=== PATIENT | female | born 1940 | race Two or more races ===

== ENCOUNTER 2018-07-10 10:35 | Outpatient (CLI) | payer OTHER | END 2018-07-10 10:54 | disposition home or self-care (01) | LOC: RAD 10:35 | DX: Z12.31 Encounter for screening mammogram for malignant neoplasm of breast (principal); Z87.898 Personal history of other specified conditions; N64.89 Other specified disorders of breast; M54.5 Low back pain ==

== ENCOUNTER 2018-07-14 13:42 | Outpatient (CLI) | payer OTHER | END 2018-07-14 13:51 | disposition home or self-care (01) | LOC: LAB 13:42 | DX: N39.0 Urinary tract infection, site not specified (principal) ==

== ENCOUNTER → 2019-04-11 | Outpatient (CLI) | payer OTHER ==
[~2019-04-11] MED LIST: TRAMADOL HCL50 MG PO
== END | disposition home or self-care (01) ==
LOC: NUCLEAR 13:00
DX: I87.2 Venous insufficiency (chronic) (peripheral) (principal); I73.9 Peripheral vascular disease, unspecified

== ENCOUNTER → 2019-04-13 | Outpatient (CLI) | payer OTHER | END | disposition home or self-care (01) | LOC: NUCLEAR 12:00 | DX: I73.9 Peripheral vascular disease, unspecified (principal) ==

== ENCOUNTER 2019-11-09 11:51 | Outpatient (CLI) | payer OTHER | END 2019-11-09 14:26 | disposition home or self-care (01) | LOC: RAD 11:51 | PROVIDERS: ATTEND Orthopaedic Surgery | DX: M75.122 Complete rotator cuff tear or rupture of left shoulder, not specified as traumatic (principal); M19.012 Primary osteoarthritis, left shoulder; Z76.89 Persons encountering health services in other specified circumstances; M20.5X2 Other deformities of toe(s) (acquired), left foot ==

== ENCOUNTER 2019-11-26 07:15 | Outpatient (CLI) | payer OTHER ==
[2019-11-26] MEDS ORDERED: SYMBICORT 16010.2 GM IH (10:28)
[2019-11-26] MEDS ORDERED: XOPENEX0.63 MG/3 IH (10:29)
[2019-11-26] MEDS ORDERED: UCERIS9 MG PO (10:29)
[2019-11-26] MEDS ORDERED: LIPITOR20 MG (10:29)
[2019-11-26] MEDS ORDERED: NORVASC10 MG PO (10:29)
[2019-11-26] MEDS ORDERED: RAYOS5 MG PO (10:30)
== END 2019-11-26 13:04 | disposition home or self-care (01) ==
LOC: RAD 07:15 → LAB 07:15
PROVIDERS: ATTEND Orthopaedic Surgery
DX: I49.8 Other specified cardiac arrhythmias (principal); I10 Essential (primary) hypertension; Z76.89 Persons encountering health services in other specified circumstances; D64.89 Other specified anemias; D68.8 Other specified coagulation defects; N39.0 Urinary tract infection, site not specified; Z22.322 Carrier or suspected carrier of Methicillin resistant Staphylococcus aureus; E88.89 Other specified metabolic disorders

== ENCOUNTER 2019-11-26 11:02 | Emergency (ER) | payer OTHER ==
[~2019-11-26] VITALS: Ht 157.5 cm; Wt 51.7 kg
[~2019-11-26 11:02] MED LIST changes: +LIPITOR20 MG; +NORVASC10 MG PO; +RAYOS5 MG PO; +SYMBICORT 16010.2 GM IH; +UCERIS9 MG PO; +XOPENEX0.63 MG/3 IH
== END 2019-11-26 11:57 | disposition home or self-care (01) ==
LOC: ER 11:02
DX: S01.81XA Laceration without foreign body of other part of head, initial encounter (principal); W06.XXXA Fall from bed, initial encounter; Y93.89 Activity, other specified; Y92.013 Bedroom of single-family (private) house as the place of occurrence of the external cause; Y99.8 Other external cause status

== ENCOUNTER 2019-12-11 05:55 | Day surgery (SDC) | payer OTHER ==
[~2019-12-11 05:55] MED LIST changes: +ALBUTEROL; +PULMOCORT; +SINGULAIR10 MG PO
== END 2019-12-11 14:15 | disposition home or self-care (01) ==
LOC: CIR.AMB 05:55
PROVIDERS: ATTEND Orthopaedic Surgery
DX: M75.122 Complete rotator cuff tear or rupture of left shoulder, not specified as traumatic (principal); M75.22 Bicipital tendinitis, left shoulder; M19.012 Primary osteoarthritis, left shoulder; Z20.828 Contact with and (suspected) exposure to other viral communicable diseases

== ENCOUNTER 2020-01-10 11:20 | Outpatient (CLI) | payer OTHER | END 2020-01-10 11:23 | disposition home or self-care (01) | LOC: RAD 11:20 | PROVIDERS: ATTEND Orthopaedic Surgery | DX: M25.512 Pain in left shoulder (principal) ==

== ENCOUNTER 2020-02-14 10:50 | Outpatient (CLI) | payer OTHER ==
[2020-02-25] MEDS ORDERED: NABUMETONE750 MG PO (11:08)
== END 2020-02-14 11:30 | disposition home or self-care (01) ==
LOC: WOUND MED 10:50
PROVIDERS: ATTEND Specialist
DX: L98.492 Non-pressure chronic ulcer of skin of other sites with fat layer exposed (principal)
CPT/HCPCS: 11042; G0463; A4554; A4930; A6216

== ENCOUNTER 2020-02-19 11:40 | Outpatient (CLI) | payer OTHER ==
[2020-02-25] MEDS ORDERED: NABUMETONE750 MG PO (11:08)
== END 2020-02-19 12:22 | disposition home or self-care (01) ==
LOC: WOUND MED 11:40
PROVIDERS: ATTEND Specialist
DX: L98.492 Non-pressure chronic ulcer of skin of other sites with fat layer exposed (principal)
CPT/HCPCS: 97602; A4554; A4930; A6216; A6219

== ENCOUNTER 2020-02-21 08:01 | Outpatient (CLI) | payer OTHER ==
[2020-02-25] MEDS ORDERED: NABUMETONE750 MG PO (11:08)
== END 2020-02-21 11:32 | disposition home or self-care (01) ==
LOC: WOUND MED 08:01
PROVIDERS: ATTEND Specialist
DX: L98.492 Non-pressure chronic ulcer of skin of other sites with fat layer exposed (principal)
CPT/HCPCS: G0463; A4554; A4930; A6216

== ENCOUNTER → 2020-08-11 09:59 | Outpatient (CLI) | payer OTHER ==
[~2020-08-11 09:59] MED LIST changes: +NABUMETONE750 MG PO; +PREDNISONE 5MG PO
== END | disposition home or self-care (01) ==
LOC: LAB 09:59
PROVIDERS: ATTEND Orthopaedic Surgery
DX: D64.89 Other specified anemias (principal); E88.89 Other specified metabolic disorders; D68.8 Other specified coagulation defects; N39.0 Urinary tract infection, site not specified; Z22.322 Carrier or suspected carrier of Methicillin resistant Staphylococcus aureus; I49.8 Other specified cardiac arrhythmias; I10 Essential (primary) hypertension; M20.12 Hallux valgus (acquired), left foot; M20.5X2 Other deformities of toe(s) (acquired), left foot; M20.22 Hallux rigidus, left foot; Z76.89 Persons encountering health services in other specified circumstances

== ENCOUNTER 2020-08-29 07:17 | Day surgery (SDC) | payer OTHER | END 2020-08-29 19:20 | disposition home or self-care (01) | LOC: CIR.AMB 07:17 | PROVIDERS: ATTEND Orthopaedic Surgery | DX: M20.12 Hallux valgus (acquired), left foot (principal); M20.42 Other hammer toe(s) (acquired), left foot; Z20.822 Contact with and (suspected) exposure to COVID-19 | CPT/HCPCS: 28309; 28272; 28285 ×2; 28299; C1776 ==

== ENCOUNTER → 2020-09-11 | Outpatient (CLI) | payer OTHER | END | disposition home or self-care (01) | LOC: RAD 14:47 | PROVIDERS: ATTEND Orthopaedic Surgery | DX: M79.672 Pain in left foot (principal) ==